=== PATIENT | male | born 1970 | race Caucasian/White ===

== ENCOUNTER 2021-02-04 17:21 | Outpatient (CLI) | payer OTHER | END 2021-02-04 17:22 | disposition home or self-care (01) | LOC: COV 17:21 | PROVIDERS: ATTEND Surgery | DX: Z01.812 Encounter for preprocedural laboratory examination (principal); K40.20 Bilateral inguinal hernia, without obstruction or gangrene, not specified as recurrent; Z20.822 Contact with and (suspected) exposure to COVID-19 ==

== ENCOUNTER 2021-02-06 10:45 | Day surgery (SDC) | payer OTHER ==
[~2021-02-06 10:45] MED LIST: BUPIVACAINE 0.25% PF 30 ML VIAL ONE; ceFAZolin 2 GM/50 ML 2 GM/50 ML BAG IV ONE
[2021-02-06] MEDS ORDERED: DEXAMETHASONE 4 MG/ML VIAL ONE (10:50)
[2021-02-06] MEDS ORDERED: LIDOCAINE-MPF 2% 5 ML VIAL ONE (10:50)
[2021-02-06] MEDS ORDERED: PROPOFOL 200 MG/20 ML VIAL IVP ONE (10:50)
[2021-02-06] MEDS ORDERED: ONDANSETRON 4 MG/2 ML VIAL ONE (10:50)
[2021-02-06] MEDS ORDERED: ROCURONIUM 50 MG/5 ML VIAL ONE (10:50)
[2021-02-06] MEDS ORDERED: KETOROLAC 30 MG/ML VIAL ONE (10:51)
[2021-02-06] MEDS ORDERED: LACTATED RINGERS 1,000 ML IV ONE ×2 (11:14→13:38)
[2021-02-06] MEDS ORDERED: BUPIVACAINE 0.25% PF 30 ML VIAL ONE (11:16)
--- NOTE | 2021-02-06 11:35 | ANESTHESIA ---
Pre-Anesthesia VS, & Labs - Diagnosis bilateral inguinal hernia - Procedure Laparoscopic bilateral inguinal hernia repair Vital Signs: Temp Pulse Resp BP Pulse Ox 36.0 C L 78 18 139/81 H 100 02/06/21 11:14 02/06/21 11:14 02/06/21 11:14 02/06/21 11:14 02/06/21 11:14 Height: 6 ft Weight (kg): 86.18 kg Body Mass Index: 25.7 BMI Classification: Overweight - NPO >8 hours - Lab Results Lab results reviewed: Yes Home Medications and Allergies Home Medications: Ambulatory Orders No Known Home Medications 02/06/21 No Known Home Medications 02/06/21 Allergies/Adverse Reactions: Allergies Allergy/AdvReac Type Severity Reaction Status Date / Time No Known Drug Allergies Allergy Verified 02/06/21 11:20 Anes History & Medical History - Anesthetic History Anesthesia Complications: reports: No previous complications Family history of Anesthesia Complications: Denies Family history of Malignant Hyperthermia: Denies - Medical History Cardiovascular: reports: None Pulmonary: reports: None Gastrointestinal: reports: None Urinary: reports: None Musculoskeletal: reports: None Endocrine/Autoimmune: reports: None Skin: reports: None - Surgical History Eyes Ears Nose Throat (EENT): reports: Tonsil/Adenoidectomy Exam General: Alert, Oriented x3, Cooperative, No acute distress Dental: WNL Mouth Openin Fingerbreadth Neck Mobility: Normal Mallampati classification: II Respiratory: Lungs clear, Normal breath sounds, No respiratory distress, No accessory muscle use Cardiovascular: Regular rate, Normal S1, Normal S2, No murmurs Plan Anesthesia Type: General Consent for Procedure(s) Verified and Reviewed: Yes Code Status: Attempt Resuscitation ASA classification: 1-Healthy patient Is this case an emergency?: No
[2021-02-06] MEDS ORDERED: MIDAZOLAM 2 MG/2 ML VIAL ONE (11:39)
[2021-02-06] MEDS ORDERED: fentaNYL 100 MCG/2 ML VIAL ONE (11:39)
[2021-02-06] MEDS ORDERED: BUPIVACAINE 0.25% PF 30 ML VIAL SUBQ ONE (12:17)
[2021-02-06] MEDS ORDERED: SUGAMMADEX 200 MG/2 ML VIAL IVP ONE (13:19)
[2021-02-06] MEDS ORDERED: oxyCODONE 5 MG TABLET PO PRN (13:40)
--- NOTE | 2021-02-06 13:45 | OPERATIVE REPORT ---
Operative Report - General Procedure Date: 02/06/21 Planned Procedure: laparoscopic bilateral inguinal hernia Pre-Op Diagnosis: bilateral inguinal hernias Procedure Performed: laparoscopic bilateral inguinal hernia repair Post Op Diagnosis: direct inguinal hernia - Procedure Note Primary Surgeon: eitan torres md Secondary Surgeon: lilibeth Anesthesia Technique: General ET tube, Local Pathology: none Estimated Blood Loss (mL): 0 Drain/Tube Type: Other (none) Indications: progressing inguinal hernias with bulge and pain Findings: direct inguinal hernias Complications: none - Other Other Information/Narrative: The patient was prepped identified brought to the operating room and placed in supine position. Sequential compression devices were placed. General endotracheal anesthesia was induced. Hurley catheter was placed. He was prepped and draped in a sterile fashion and given preoperative antibiotics. Local anesthetic was given to the operative area. A 3 cm infraumbilical incision was made. A 2 and half centimeter incision was made on the fascia just right lateral of midline. The preperitoneal space was developed with digital blunt dissection. A Aranda trocar was placed and secured with 3 interrupted 0 Vicryl sutures. The preperitoneal space was further developed using the scope. In midline two 5 mm trochars were placed. The right inguinal hernia was first approached. The preperitoneal space was further developed. The peritoneum was further brought down. There was no indirect inguinal hernia. The inferior epigastrics were kept along the abdominal wall. The patient had a direct inguinal hernia. The left side was then approached. Dissection proceeded in a similar fashion. A pocket was created on both sides to allow for large preformed mesh. Bard large preformed mesh was placed bilaterally and secured at the pubic tubercle along Peter's ligament and anteriorly under the rectus musculature. The mesh lay in good position. CO2 was evacuated and trochars removed under vision. Fascia at the periumbilical area was closed with a total of 4 interrupted 0 Vicryl sutures. Skin was closed with a running 4-0 Monocryl subcuticular suture. Dressings were applied. The Hurley catheter was removed. The patient tolerated the procedure well was awakened and brought to recovery in good condition.
[2021-02-06] MEDS ORDERED: ATROPINE ABBOJECT 1 MG/10 ML SYRINGE IVP PRN (13:57)
[2021-02-06] MEDS ORDERED: MORPHINE 2 MG/ML CARPUJECT IVP PRN (13:57)
[2021-02-06] MEDS ORDERED: fentaNYL 100 MCG/2 ML VIAL IVP PRN (13:57)
[2021-02-06] MEDS ORDERED: ONDANSETRON 4 MG/2 ML VIAL IVP PRN (13:57)
[2021-02-06] MEDS ORDERED: METOCLOPRAMIDE 10 MG/2 ML VIAL IVP PRN (13:57)
[2021-02-06] MEDS ORDERED: HYDROmorphone 0.5 MG/0.5 ML SYRINGE IVP PRN (13:57)
[2021-02-06] MEDS ORDERED: NALOXONE 0.4 MG/ML VIAL IVP PRN (13:57)
[2021-02-06] MEDS ORDERED: ePHEDrine 50 MG/ML VIAL IVP PRN (13:57)
[2021-02-06] MEDS ORDERED: LACTATED RINGERS 1,000 ML IV SCH (14:00)
[2021-02-06] MEDS ORDERED: oxyCODONE 5 MG TABLET ONE (14:25)
[2021-02-06 14:34] VITALS: BP 120/88
--- NOTE | 2021-02-06 15:24 | ANESTHESIA POST OP EVALUATION ---
Anesthesia Post Eval - Post Anesthesia Eval Vitals: Last Vital Signs Temp 36.2 C L 02/06/21 14:34 Pulse 86 02/06/21 14:34 Resp 16 02/06/21 14:34 BP 120/88 H 02/06/21 14:34 Pulse Ox 96 02/06/21 14:34 CV Function Including HR & BP: Stable Pain Control: Satisfactory Nausea & Vomiting: Negative Mental Status: Baseline Respiratory Status: Airway Patent Hydration Status: Satisfactory Anesthesia Complications: None
== END 2021-02-06 10:46 | disposition home or self-care (01) ==
LOC: SDS 10:45
PROVIDERS: ATTEND Surgery
DX: K40.20 Bilateral inguinal hernia, without obstruction or gangrene, not specified as recurrent (principal); G47.30 Sleep apnea, unspecified; Z87.891 Personal history of nicotine dependence
CPT/HCPCS: 49650; A9270; C1781; J0690; J7120

== ENCOUNTER 2021-10-29 18:54 | Outpatient (CLI) | payer OTHER ==
--- NOTE | 2021-10-30 12:31 | XRAY Report ---
PROCEDURE: Hand 3 View LT INDICATIONS: CONTUSION OF L HAND TECHNIQUE: 3 views of the hand(s) acquired. COMPARISON: None FINDINGS: Bones: There is subluxation at the fifth PIP joint. There is a slight irregularity at the base of the fifth proximal phalanx at the articular surface best seen on lateral view. No suspicious bony lesion s. Soft tissues: No suspicious soft tissue calcifications. IMPRESSION: Fifth PIP joint subluxation with questionable nondisplaced proximal phalanx fracture. Short interval imaging follow-up in 7-10 days is recommended. Reviewed by: Raqcuel Domingo MD on 10/30/2021 12:29 PM PDT Approved by: Racquel Domingo MD on 10/30/2021 12:29 PM PDT Station ID: [id number]
== END 2021-10-29 23:59 | disposition home or self-care (01) ==
LOC: DI.N 18:54
PROVIDERS: ATTEND Physician Assistant Medical
DX: S67.195A Crushing injury of left ring finger, initial encounter (principal); S67.197A Crushing injury of left little finger, initial encounter; S60.222A Contusion of left hand, initial encounter; S63.237A Subluxation of proximal interphalangeal joint of left little finger, initial encounter